=== PATIENT | male | born 1975 | race Caucasian/White ===

== ENCOUNTER 2019-12-28 09:23 | Outpatient (CLI) | payer OTHER, SELFPAY ==
--- NOTE | 2019-12-28 10:30 | NEURO_ITS ---
Patient Number: [id number] Impression: # Complains of right hand paresthesia. History of left carpal tunnel release. # Bilateral Carpal Tunnel Syndrome, right more than left. # Normal needle/EMG exam. Nerve Conduction Studies Anti Sensory Summary Table Stim Site NR Peak (ms) P-T Amp (?V) Site1 Site2 Delta-P (ms) Dist (cm) Garret (m/s) Left Median Anti Sensory (2-3nd Digit) Wrist 2.9 56.6 Wrist 2-3nd Digit 2.9 14.0 48 Wrist 3.1 23.5 Wrist 2-3nd Digit 2.9 14.0 48 Right Median Anti Sensory (2-3nd Digit) Wrist 3.9 24.0 Wrist 2-3nd Digit 3.9 14.0 36 Wrist 3.8 24.3 Wrist 2-3nd Digit 3.9 14.0 36 Left Radial Anti Sensory (Base 1st Digit) Wrist 1.9 23.0 Wrist Base 1st Digit 1.9 0.0 Right Radial Anti Sensory (Base 1st Digit) Wrist 1.8 14.9 Wrist Base 1st Digit 1.8 0.0 Left Ulnar Anti Sensory (5th Digit) Wrist 2.4 39.3 Wrist 5th Digit 2.4 14.0 58 Right Ulnar Anti Sensory (5th Digit) Wrist 2.9 30.1 Wrist 5th Digit 2.9 14.0 48 Motor Summary Table Stim Site NR Onset (ms) O-P Amp (mV) Site1 Site2 Delta-0 (ms) Dist (cm) Garret (m/s) Left Median Motor (Abd Poll Brev) Wrist 3.3 5.3 Elbow Wrist 4.6 26.0 57 Elbow 7.9 5.9 Right Median Motor (Abd Poll Brev) Wrist 4.1 2.7 Elbow Wrist 4.8 28.0 58 Elbow 8.9 2.8 Left Ulnar Motor (Abd Dig Minimi) Wrist 2.2 4.4 A Elbow Wrist 5.2 30.0 58 A Elbow 7.4 3.1 Right Ulnar Motor (Abd Dig Minimi) Wrist 2.6 6.6 A Elbow Wrist 5.2 29.0 56 A Elbow 7.8 5.7 F Wave Studies NR F-Lat (ms) L-R F-Lat (ms) Left Median (Mrkrs) (Abd Poll Brev) 28.92 0.67 Right Median (Mrkrs) (Abd Poll Brev) 29.59 0.67 Left Ulnar (Mrkrs) (Abd Dig Min) 28.32 1.33 Right Ulnar (Mrkrs) (Abd Dig Min) 29.65 1.33 EMG Side Muscle Nerve Root Ins Act Fibs Amp Dur Recrt Comment Right 1stDorInt Ulnar C8-T1 Nml Nml Nml Nml Nml Right Ext Indicis Radial (Post Int) C7-8 Nml Nml Nml Nml Nml Right Ext Digitorum Radial (Post Int) C7-8 Nml Nml Nml Nml Nml Right BrachioRad Radial C5-6 Nml Nml Nml Nml Nml Right PronatorTeres Median C6-7 Nml Nml Nml Nml Nml Right Abd Poll Brev Median C8-T1 Nml Nml Nml Nml Nml Left 1stDorInt Ulnar C8-T1 Nml Nml Nml Nml Nml Left Ext Indicis Radial (Post Int) C7-8 Nml Nml Nml Nml Nml Left Ext Digitorum Radial (Post Int) C7-8 Nml Nml Nml Nml Nml Left BrachioRad Radial C5-6 Nml Nml Nml Nml Nml Left PronatorTeres Median C6-7 Nml Nml Nml Nml Nml Left Abd Poll Brev Median C8-T1 Nml Nml Nml Nml Nml MTDD
== END 2019-12-28 09:24 | disposition home or self-care (01) ==
PROVIDERS: Visit Provider Orthopaedic Surgery
DX: G56.03 Carpal tunnel syndrome, bilateral upper limbs (principal)
CPT/HCPCS: 95886; 95911

== ENCOUNTER 2020-01-07 07:07 | Outpatient (CLI) | payer OTHER, SELFPAY ==
[2020-01-07 20:52] LABS: SARS-CoV-2 RNA PCR Negative
== END 2020-01-07 07:08 | disposition home or self-care (01) ==
PROVIDERS: PCP Nurse Practitioner Psychiatric/Mental Health; Visit Provider Orthopaedic Surgery
DX: Z01.818 Encounter for other preprocedural examination (principal); Z11.59 Encounter for screening for other viral diseases
CPT/HCPCS: 87635; C9803; U0003

== ENCOUNTER 2020-01-10 02:08 | Day surgery (SDC) | payer OTHER, SELFPAY ==
[2020-01-05 15:23] VITALS: BMI 27.3
[2020-01-10] VITALS (8 sets, daily range): BP systolic 104–113; BP diastolic 32–84; PULSE 60–78; RESP 14–16; TEMP 36.3; O2SAT 94–99; BMI 27.6
--- NOTE | 2020-01-10 06:37 | WPDANESEPPF ---
Anes - Initial Pre Proc Eval Procedure: Operation Date: 01/10/20 07:30 Proposed Procedures p Right Carpal Tunnel Release - Chris Guerrero MD s Ulnar Nerve Decompression Versus Transposition - Chris Guerrero MD Date/Time: 01/10/20 06:37 Surgeon: Chris Guerrero MD Pre Op Diagnosis: right carpal and cubital tunnel syndrome Patient Data Age: 44 Gender: M Height: 5 ft 7 in Weight: 80 kg Allergies Allergy/AdvReac Type Severity Reaction Status Date / Time No Known Allergies Allergy Verified 01/10/20 06:15 Home Medications Medication Instructions Recorded Confirmed Type No Home Medications 01/04/20 01/10/20 History Patient hx anesthesia problems: none Family hx anesthesia problems: none PMFSH Surgical History Surgical History History of hand surgery Left carpal & cubical tunnel 09/2016 History of neck surgery History of right knee surgery prepatellar bursectomy for sepsis Social History Social History Smoking status: Former smoker Alcohol intake: current Additional living arrangements comments: Bryson Severino and Roselia Durán Additional occupation/education comments: [employer] Anes - Eval Final PreProcedure Day of Procedure 01/10/20 06:37 Patient weight: overweight Heart: regular rate and rhythm Lungs: clear to auscultation Airway: Mallampati scale class II Neurological: alert and oriented Last oral intake: >/= 8 hours ASA classification: II Emergent: no Anesthetic plan: proceed Anesthesia type and monitoring: general LMA and standard monitoring Informed Consent: The patient's anesthetic plan and its attendant risks and benefits were discussed with the patient/family/POA. Questions were solicited and answers provided to the satisfaction of the patient/family/POA.
[2020-01-10] MEDS: LACTATED RINGERS 1,000 ML 30 ML IV CONT ×2 (06:41→08:44)
--- NOTE | 2020-01-10 07:09 | WPDHPUPDATE1 ---
History and Physical Update Update Date/Time: 01/10/20 07:09 History and Physical has been reviewed, including an updated exam of the patient. There are NO changes in the patient's condition. Risks, benefits, and alternatives have been discussed and questions answered. Patient agrees to proceed with procedure.
[2020-01-10] MEDS: ceFAZolin 2 GM/D5W 50 ML 2 GM/50 ML BAG IVPB (07:18)
[2020-01-10] MEDS: KETOROLAC 30 MG/ML VIAL (*BKC) IV PUSH (08:02)
[2020-01-10] MEDS: BUPIVACAINE/EPINEPHRINE 0.25% 50 ML VIAL 7 ML INFILTRATE (08:05)
--- NOTE | 2020-01-10 08:25 | P.OP_ITS ---
Procedure Note - Detailed Date of procedure: 01/10/20 Pre-op diagnosis: right carpal and cubital tunnel syndrome Post-op diagnosis: same Procedure performed: Right cubital and carpal tunnel releases Description of procedure: The patient was identified and proper sites identified. He was taken back to the operating room and transferred to the OR table placing him supine taking care to pad his torso and extremities. After general anesthetic induction and intubation, a nonsterile tourniquet was placed high on the right arm. The right upper extremity was prepped and draped in the usual sterile fashion. The extremity was exsanguinated and tourniquet inflated to 250 mmHg remaining up for approximately 26 minutes. A curvilinear incision was made over the cubital tunnel. Subcutaneous tissue was sharply dissected vascular structures all the way down to the cubital tunnel retinaculum. This was divided. There was a small leash of vessels with in a fibrous band within the cubital tunnel causing pretty significant compression of the ulnar nerve. The vessels were cauterized with bipolar cautery and the fascial band divided. Once the ulnar nerve had been freed up, the elbow was taken through range of motion showing the nerve to be stable in its groove so no transposition was performed. The subcutaneous tissue was tacked back together with two O Vicryl and skin edges reapproximated with three 0 nylon interrupted sutures. Attention was then turned to the carpal canal. The subcutaneous tissue over the transverse carpal ligament was infiltrated with several cc of 0.25% Marcaine and epinephrine solution. Longitudinal incision was made over the ulnar aspect of the transverse carpal ligament. Subcutaneous tissue was bluntly dissected down to the ligament which was identified and then transected longitudinally in line with the incision releasing the contents of the carpal canal. Wound was irrigated with sterile antibiotic solution. Skin edges were reapproximated with three 0 nylon suture and a sterile dressing was applied to both wounds securing it with a six-inch Luis Enrique wrap. The tourniquet was released. There was good capillary refill to the fingertips after the tourniquet was released. The patient tolerated the procedure well. He was awakened, extubated and taken to recovery area in stable condition. There were no known intraoperative complications. Estimated blood loss was negligible. He received perioperative antibiotics. Anesthesia: GLMA Surgeon: Chris Guerrero MD Commissioner Of Conciliation: Jessika Palma Estimated blood loss (mL): 2 Tourniquet time (min): 26 Drains: No Packing: No Pathology: none sent Complications: No immediate complications Condition: stable Disposition: PACU
== END 2020-01-10 10:15 | disposition home or self-care (01) ==
PROVIDERS: PCP Nurse Practitioner Psychiatric/Mental Health; Visit Provider Orthopaedic Surgery
PROC: (CPT 64721; principal; 2020-01-10 07:30)
PROC: (CPT 64721; 2020-01-10 07:30)
DX: G56.01 Carpal tunnel syndrome, right upper limb (principal); G56.21 Lesion of ulnar nerve, right upper limb; Z87.891 Personal history of nicotine dependence
CPT/HCPCS: 64721; 64718; 87635; A4565; A9270; C9803; J0690; J1100; J1885; J2250; J2405; J2704; J3010; J7120; U0003